=== PATIENT | female | born 1950 | race Caucasian/White ===

== ENCOUNTER 2017-06-20 02:21 | Emergency (ER) | payer MEDICARE, BC ==
[~2017-06-20] VITALS: Ht 160 cm; Wt 103.3 kg
[2017-06-20 02:23] VITALS: BP 118/67; PULSE 98; RESP 16; TEMP 98.1; O2SAT 97
--- NOTE | 2017-06-20 02:57 | PD ---
HPI Time Seen by Provider: 02:33 Travel History International Travel<30 days: No Contact w/Intl Traveler<30days: No History of Present Illness HPI This is a 67 year old female who presents to the emergency department with left sided neck pain and arm pain that started this evening about 4 hours ago. 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 This evening she developed pain in her left neck, worse with movement radiating down the left arm. The pain as a soreness, constant, moderate severity and it gets worse when she rotates her neck from [id number] and when she lifts her arm. She was concerned because she has a history of pulmonary embolism and she thought she could have a blood clot in her neck. She takes Eliquis and hasn't missed any doses. She also has family history of heart disease but she denies any chest pain or shortness of breath. [facility] Past Medical History Narrative Medical Diabetes Chronic pain Pulmonary embolism Social History Narrative Social History [place] Review of Systems Except as stated in HPI: all other systems reviewed are Neg Physical Exam Narrative GENERAL:Well appearing, no acute distress SKIN: Focused skin assessment warm and dry. HEAD: Atraumatic. Normocephalic. EYES: Pupils equal and round. No injection or drainage. ENT: Moist mucous membranes NECK: Trachea midline. CARDIOVASCULAR: Regular rate and rhythm. No murmur appreciated. 2+ left radial pulse with normal capillary refill. RESPIRATORY: Clear to auscultation. Breath sounds equal bilaterally. GASTROINTESTINAL: Abdomen soft, non-tender, nondistended. MUSCULOSKELETAL: Tender to palpation along the left lateral neck, above the left clavicle, along the left upper trapezius muscle and along the left deltoid. Pain is reproduced with rotation of the neck and abduction of the left shoulder. No Homans sign bilaterally. No edema. NEUROLOGICAL: Awake and alert. No obvious cranial nerve deficits. Moving all extremities. PSYCHIATRIC: Appropriate mood and affect; insight and judgment normal. Data Data Last Documented VS Vital Signs Date Time Temp Pulse Resp B/P (MAP) Pulse Ox O2 Delivery O2 Flow Rate FiO2 06/20/17 02:23 98.1 98 16 118/67 (84) 97 [facility] Medical Decision Making Medical Screen Exam Complete: Yes Emergency Medical Condition: Yes Differential Diagnosis Musculoskeletal pain, cervical strain, DVT, pulmonary embolism, myocardial infarction Narrative Course This is a 67-year-old female who presents to the emergency department with left- sided neck and shoulder pain after lifting heavy boxes today. Her pain is musculoskeletal in nature. She is tender on exam and pain worsens when she rotates her neck and abducts her shoulder. She denies any chest pain or trouble breathing. Her vital signs are reassuring. Her symptoms would be very atypical for a DVT or pulmonary embolism, and she has no chest pain to suggest myocardial infarction. I had along conversation with the patient regarding testing versus conservative management. In my heart of hearts I think this pain is musculoskeletal. I think she should continue to take muscle relaxers and her home pain regimen. She is amenable to this plan and she agrees to return to the emergency department if her symptoms at all worsen. Diagnosis Primary Impression: Cervical strain Qualified Codes: S16.1XXA - Strain of muscle, fascia and tendon at neck level , initial encounter Additional Instructions: If you develop severe chest pain, shortness of breath, sweating, lightheadedness , dizziness or difficulty breathing return to the emergency department immediately. Followup with your primary care physician in 2-3 days if your symptoms are not resolved. Med/Other Pt SpecificInfo: No Change to Meds Disposition: 01 DISCHARGE HOME Condition: Stable Genny Bean MD Jun 20, 2017 02:57
[2017-06-20] MEDS ORDERED: APIX5TAB PO (03:15)
[2017-06-20] MEDS ORDERED: GLYB1.253 PO (03:15)
[2017-06-20] MEDS ORDERED: TIZA6CAP3 PO (03:15)
[2017-06-20] MEDS ORDERED: ALVE80AE2 INH (03:15)
[2017-06-20] MEDS ORDERED: METH2.5T PO (03:15)
[2017-06-20] MEDS ORDERED: VALS1TAB70 PO (03:15)
[2017-06-20] MEDS ORDERED: ALBU6.7H INH (03:15)
[2017-06-20] MEDS ORDERED: AMLO10TA2 PO (03:15)
[2017-06-20] MEDS ORDERED: TRAZ50TA12 PO (03:15)
[2017-06-20] MEDS ORDERED: MONT10TA2 PO (03:15)
[2017-06-20] MEDS ORDERED: SIMP50IN SQ (03:15)
[2017-06-20] MEDS ORDERED: LEUC5TAB PO (03:15)
[2017-06-20] MEDS ORDERED: MEDICAL MARIJUANA PO (03:15)
[2017-06-20] MEDS ORDERED: GABA800T PO (03:15)
[2017-06-20] MEDS ORDERED: DULO1CAP3 PO (03:15)
== END 2017-06-20 03:38 | disposition home or self-care (01) ==
LOC: PHED 02:21
DX: S16.1XXA Strain of muscle, fascia and tendon at neck level, initial encounter (principal); E11.9 Type 2 diabetes mellitus without complications; X50.0XXA Overexertion from strenuous movement or load, initial encounter; Z86.711 Personal history of pulmonary embolism
CPT/HCPCS: 99282

== ENCOUNTER 2017-07-06 19:52 | Emergency (ER) | payer MEDICARE, BC ==
[~2017-07-06] VITALS: Ht 160 cm; Wt 104.0 kg
[~2017-07-06 19:52] MED LIST: ALBU6.7H INH; ALVE80AE2 INH; AMLO10TA2 PO; APIX5TAB PO; DULO1CAP3 PO; GABA800T PO; GLYB1.253 PO; LEUC5TAB PO; MEDICAL MARIJUANA PO; METH2.5T PO; MONT10TA2 PO; SIMP50IN SQ; TIZA6CAP3 PO; TRAZ50TA12 PO; VALS1TAB70 PO
[2017-07-06 20:12] VITALS: BP 144/75; PULSE 88; RESP 18; TEMP 98.4; O2SAT 95
--- NOTE | 2017-07-06 21:11 | PD ---
HPI Chief Complaint: Pain: Acute or Chronic Time Seen by Provider: 21:05 Travel History International Travel<30 days: No Contact w/Intl Traveler<30days: No Traveled to known affect area: No History of Present Illness HPI 67-year-old female here for evaluation of left-sided chest discomfort that started 6 days ago after mechanical trip and fall while walking her dogs. The patient reports that she fell forward and landed onto her left chest. She reports history of bruised ribs and states that this feels similar. Pain is moderate, constant, improved when she applies manual pressure to her left chest. No dyspnea. No abdominal pain. She did not sustain any head injury or loss of consciousness. No upper or lower extremity pain. No new neck or back pain. PFSH Past Medical History Hx Anticoagulant Therapy: Yes (ELOQUIS) Asthma: Yes Depression: Yes Cancer: Yes (SKIN) Diabetes: Yes Patient Takes Glucophage: No Diminished Hearing: Yes Deep Vein Thrombosis: Yes Fibromyalgia: Yes Hypertension: Yes Kidney Stones: Yes Respiratory: Yes (ASTHMA, PE BILAT) Sleep Apnea: Yes Tetanus Vaccination: Unknown Influenza Vaccination: No ?: Not Past Surgical History Abdominal Surgery: Yes (SHALONDA FUNDO PLICATON) Hysterectomy: Yes Tonsillectomy: Yes Other Surgery: Yes (LAMENECTOMY L-4,5, RIGHT CARPAL TUNNEL, RIGHT METACARPAL JOINT REPLACEMENT) Social History Alcohol Use: No Tobacco Use: No Substance Use: Yes (MEDICAL MARIJUANA) Allergies-Medications (Allergen,Severity, Reaction): Coded Allergies: Penicillins (Verified Allergy, Severe, Anaphylaxis, 07/06/17) Sulfa (Sulfonamide Antibiotics) (Verified Allergy, Severe, Anaphylaxis, 06/11) acetaminophen (Verified Allergy, Severe, Hives, 07/06/17) azithromycin (Verified Allergy, Severe, Anaphylaxis, 07/06/17) butalbital (Verified Allergy, Severe, RASH, 07/06/17) caffeine (Verified Allergy, Severe, RASH, 07/06/17) codeine (Verified Allergy, Severe, Hives, 07/06/17) erythromycin base (Verified Allergy, Severe, CHIILDHOOD REACTION UNKNOWN , 07/06/17) hydrocodone (Verified Allergy, Severe, Hives, 07/06/17) hydromorphone (Verified Allergy, Severe, Hives, 07/06/17) lidocaine (Verified Allergy, Severe, Hives, 07/06/17) oxycodone (Verified Allergy, Severe, Hives, 07/06/17) procaine (Verified Allergy, Severe, Anaphylaxis, 07/06/17) latex (Verified Allergy, Intermediate, Rash, 07/06/17) aspirin (Verified Allergy, Unknown, 07/06/17) Reported Meds & Prescriptions Reported Meds & Active Scripts Active Reported Alvesco Inh (Ciclesonide Inh) 80 Mcg/Act Aero 80 Mcg INH BID Proventil Hfa 6.7 GM Inh (Albuterol Sulfate) 90 Mcg/Act Aer 2 Puff INH Q4-6H PRN Leucovorin (Leucovorin Calcium) 5 Mg Tab 5 Mg PO WEEKLY Methotrexate 2.5 Mg Tab 7.5 Mg PO Q7D Simponi Inj (Golimumab) 50 Mg/0.5 Ml Syr 50 Mg SQ Q30D Singulair (Montelukast Sodium) 10 Mg Tab 10 Mg PO HS Amlodipine (Amlodipine Besylate) 10 Mg Tab 10 Mg PO DAILY [Medical Marijuana] PO Tizanidine (Tizanidine HCl) 6 Mg Cap 6 Mg PO TID Duloxetine DR (Duloxetine HCl) 60 Mg Capdr 60 Mg PO DAILY Trazodone (Trazodone HCl) 50 Mg Tab 50 Mg PO HS Valsartan 320 Mg Tab 360 Mg PO DAILY Glyburide 1.25 Mg Tab 1.25 Mg PO BID Take with meals at the same time each day Gabapentin 800 Mg Tab 800 Mg PO TID Eliquis (Apixaban) 5 Mg Tab 5 Mg PO BID Review of Systems Except as stated in HPI: all other systems reviewed are Neg Physical Exam Narrative GENERAL: Well-developed, well-nourished, overweight, comfortable, no apparent distress. SKIN: Focused skin assessment warm/dry. No lacerations, abrasions, or ecchymosis. HEAD: Atraumatic. Normocephalic. EYES: Pupils equal and round. No scleral icterus. No injection or drainage. ENT: Mucous membranes pink and moist. NECK: Trachea midline. No JVD. No midline cervical spine step-off or tenderness. CARDIOVASCULAR: Regular rate and rhythm. RESPIRATORY: No accessory muscle use. Clear to auscultation. Breath sounds equal bilaterally. GASTROINTESTINAL: Abdomen soft, non-tender, nondistended. MUSCULOSKELETAL: No obvious deformities. No clubbing. No cyanosis. No edema. Mild left anterior and lateral chest wall tenderness without step-off, without crepitus, without paradoxical chest wall movements. No midline vertebral step- off or tenderness. NEUROLOGICAL: Awake and alert. No obvious cranial nerve deficits. Motor grossly within normal limits. Normal speech. PSYCHIATRIC: Appropriate mood and affect; insight and judgment normal. Data Data Last Documented VS Vital Signs Date Time Temp Pulse Resp B/P (MAP) Pulse Ox O2 Delivery O2 Flow Rate FiO2 07/06/17 20:12 98.4 88 18 144/75 (98) 95 Orders Orders Ribs, Uni (W/Exp Cxr-Min 3vw) (07/06/17 ) MDM Medical Decision Making Medical Screen Exam Complete: Yes Emergency Medical Condition: Yes Differential Diagnosis Chest wall contusion, rib fractures, hemothorax, pneumothorax, pulmonary contusion Narrative Course Vital signs show heart rate 88, blood pressure 144/75, pulse ox 95% on room air , oral temp of 98.4F. Left ribs and chest x-ray: Age-indeterminate left lateral fourth rib fracture. No pneumothorax. Patient tells me that she fractured a rib on her left side several years ago. She is resting comfortably and was made aware of the x-ray findings. Pain is very musculoskeletal in nature and started after she tripped and fell and landed onto her left chest wall. At this point she is stable for discharge home with outpatient follow-up with her primary care physician this week. She was advised on when to return to the emergency department. She verbalizes understanding and agreement with plan. Diagnosis Primary Impression: Contusion of left chest wall Qualified Codes: S20.212A - Contusion of left front wall of thorax, initial encounter Referrals: Primary Care Physician 3 days Additional Instructions: Follow-up with your primary care physician this week. Return to the emergency department for worsening symptoms or any other concerns. Scripts Tramadol (Tramadol) 50 Mg Tab 50 MG PO Q6H Y for PAIN, #15 TAB 0 Refills Prov: Scar Sadler MD 07/06/17 Disposition: 01 DISCHARGE HOME Condition: Stable Scar Sadler MD Jul 06, 2017 21:11
--- NOTE | 2017-07-06 21:53 | RADRPT ---
EXAM DATE/TIME: 07/06/2017 21:17 [place] COMPARISON: No previous studies available for comparison. INDICATIONS : Left anterior, superior rib pain post fall. MEDICAL HISTORY : Asthma SURGICAL HISTORY : None. ENCOUNTER: Initial ACUITY: 1 day PAIN SCORE: 8/10 LOCATION: Left chest FINDINGS: 5 views ribs and chest. Age-indeterminate fourth lateral rib fracture on the left. No evidence of pne umothorax. CONCLUSION: Age-indeterminate fourth lateral rib fracture on the left. No evidence of pneumothorax. Chintan Coleman MD on July 06, 2017 at 21:48 Board Certified Radiologist. This report was verified electronically.
[2017-07-06] MEDS ORDERED: TRAM50TA PO (22:13)
== END 2017-07-06 22:21 | disposition home or self-care (01) ==
LOC: PHEFT 19:52
DX: S20.212A Contusion of left front wall of thorax, initial encounter (principal); W18.39XA Other fall on same level, initial encounter; Y93.K1 Activity, walking an animal; J45.909 Unspecified asthma, uncomplicated; I10 Essential (primary) hypertension; E11.9 Type 2 diabetes mellitus without complications; M79.7 Fibromyalgia; F32.9 Major depressive disorder, single episode, unspecified; G47.30 Sleep apnea, unspecified; Z79.01 Long term (current) use of anticoagulants; Z79.84 Long term (current) use of oral hypoglycemic drugs; Z86.718 Personal history of other venous thrombosis and embolism; Z87.442 Personal history of urinary calculi; Z85.828 Personal history of other malignant neoplasm of skin
CPT/HCPCS: 71101; 99283